=== PATIENT | male | born 1990 | race American Indian/Alaskan Native ===

== ENCOUNTER 2017-06-14 17:01 | Inpatient (IN) | payer BC ==
--- NOTE | 2017-06-14 17:47 | Cat Scan Report ---
FINAL REPORT EXAM: CT HEAD/BRAIN WO CON HISTORY: neuro deficits \T\lt; 6hrs or sx present upon awakening TECHNIQUE: Noncontrast serial axial images from skull base to vertex. PRIORS: None. FINDINGS: There is no mass effect or midline shift. There are no abnormal intra or extra-axial fluid collections. Cortical sulci and lateral ventricles are within normal limits for size and configuration. Basilar cisterns are patent. No acute intracranial hemorrhage is identified. There is polypoid mucosal thickening in left maxillary sinus. Mucosal thickening is also noted in the frontal sinus. Mastoid air cells are well aerated. No acute osseous abnormality is identified. IMPRESSION: 1. No abnormal mass or acute intracranial hemorrhage is identified. 2. The patient can be further assessed with MRI with diffusion-weighted imaging if indicated.
[2017-06-14 17:56] LABS: Basophils % (Auto) 0.6 % (0.0-1.8); Eosinophils % (Auto) 4.9 % (0.0-4.3); Hematocrit 42.2 % (35.5-45.6); Hemoglobin 14.1 gm/dl (11.8-15.2); Mean Corpuscular HGB Conc 33 % (32-34); Mean Corpuscular Hemoglobin 29 pg (28-32); Mean Corpuscular Volume 87 fl (84-94); Platelet Count 237 K/mm3 (140-440); Red Blood Count 4.87 M/mm3 (3.65-5.03); Red Cell Distribution Width 13.4 % (13.2-15.2); White Blood Count 7.4 K/mm3 (4.5-11.0)
[2017-06-14 18:06] LABS: INR 0.93 (0.87-1.13)
[2017-06-14 18:07] LABS: Partial Thromboplastin Time 25.3 Sec. (24.2-36.6)
[2017-06-14] MEDS ORDERED: TYLENOL ONE (18:12)
[2017-06-14 18:19] LABS: Anion Gap 17 mmol/L; BUN/Creatinine Ratio 12.72; Blood Urea Nitrogen 14 mg/dL (9-20); Carbon Dioxide 26 mmol/L (22-30); Chloride 101.1 mmol/L (98-107); Glucose 92 mg/dL (75-100); Potassium 4.7 mmol/L (3.6-5.0); Sodium 139 mmol/L (137-145)
[2017-06-14] MEDS ORDERED: TYLENOL PO ONE (18:19)
[2017-06-14] MEDS ORDERED: BENADRYL IV ONE (18:39)
[2017-06-14] MEDS ORDERED: REGLAN IV ONE (18:39)
[2017-06-14] MEDS ORDERED: TORADOL IV ONE (18:39)
[2017-06-14] MEDS ORDERED: NACL 0.9% IV ONE (19:13)
[2017-06-14] MEDS ORDERED: ACTIVASE IV ONE ×2 (19:13)
--- NOTE | 2017-06-14 19:13 | Emergency Department Report ---
ED Neuro Deficit HPI - General Chief Complaint: Neuro Symptoms/Deficit Stated Complaint: NUMB EVERYWHERE Time Seen by Provider: 06/14/17 18:30 Source: patient Mode of arrival: Ambulatory Limitations: No Limitations - History of Present Illness Initial Comments: 26 yo male with no significant past medical history presents to the hospital on several right sided numbness followed by weakness that began around 10 minutes prior to arrival (16:50). He states he was driving he noted numbness at his right foot and then started to spread caudally to right torso sided neck, and right face. Positive associated right tongue numbness as well. Patient states he associated left arm heaviness. He developed left-sided pressure-like headache behind his eye after arrival. Pain is rated 5/10 in intensity without giving a relieving factors. He denies head injury, past medical history, previous migraines, neck pain, slow speech. Patient ambulated without difficulty per RN. - Related Data Allergies/Adverse Reactions: Allergies Allergy/AdvReac Type Severity Reaction Status Date / Time No Known Allergies Allergy Verified 06/14/17 17:09 ED Review of Systems ROS: Stated complaint: NUMB EVERYWHERE Other details as noted in HPI Comment: All other systems reviewed and negative Other: General: No fever or chills Eyes: No blurry vision or discharge HEENT: No throat pain Neck: No pain Respiratory: No shortness of breath, wheezing, or coughing Cardiovascular: No chest pain, palpitations, or syncope GI: No abdominal pain, nausea, vomiting, diarrhea, melena, or hematochezia : No dysuria or increased frequency Musculoskeletal: No back pain, no joint swelling Neurologic: As per HPI Psychiatric: Denies hallucinations, suicidal ideation, homicidal ideation Skin: No rash or lesions ED Past Medical Hx - Past Medical History Previous Medical History?: No - Surgical History Past Surgical History?: No - Social History Smoking Status: Never Smoker Substance Use Type: None ED Neuro Physical Exam - General Limitations: No Limitations Suspected Stroke: Yes - NIHSS Assessment Interval: Baseline 1a. Level of Consciousness: alert 1b. LOC Questions: answers correctly 1c. LOC Commands: performs tasks correctly 2. Best Gaze: normal 3. Visual: no visual loss 4. Facial Palsy: normal symmetrical movement 5b. Motor Arm Right: no drift 5a. Motor Arm Left: no drift 6a. Motor Leg Left: no drift 6b. Motor Leg Right: drift 7. Limb Ataxia: absent 8. Sensory: mild/moderate sensory loss (decreased right face, arm, leg) 9. Best Language: no aphasia 10. Dysarthria: normal 11. Extinction/Inattention: no abnormality Total Score: 2 Stroke Severity: Minor Stroke - Other Other exam information: General: No acute distress, Head: Atraumatic, normocephalic Eyes: Normal appearance, pupils equal and reactive to light, extraocular movements intact HEENT: Moist mucous membranes, normal oropharynx Neck: Full range of motion, normal inspection, no midline tenderness CV: Regular rate and rhythm Respiratory: Clear to auscultation, no wheezes, rales, or crackles Abdomen: Soft, nondistended, nontender, normal bowel sounds, no rebound or guarding Extremities: Full range of motion, no deformity Back: Normal inspection, nontender, full range of motion Neurologic: Alert and oriented 3, cranial nerves grossly intact, seen NIH stroke scale Psychiatric: Normal mood and affect ED Course Vital Signs 06/14/17 06/14/17 17:02 18:09 Temperature 98 F Pulse Rate 81 Respiratory 18 18 Rate Blood Pressure 159/89 O2 Sat by Pulse 100 100 Oximetry - Reevaluation(s) Reevaluation #1: 06/14/17 19:18 Medications for migraine headache provided. TPA ordered. Toradol cancel since TPA will be given. - Consultations Consultation #1: 06/14/17 18:45 case d/w Dr hines, will evaluation 06/14/17 19:[address] Slater after evaluating patient and she recommends tPA due to right-sided weakness, difficulty ambulating, and right-sided numbness. Pt understands and accepts the risks of this medication. - Lab Data Result diagrams: 06/14/17 17:41 06/14/17 17:41 Lab Results 06/14/17 06/14/17 06/14/17 Range/Units 17:13 17:41 17:41 WBC 7.4 (4.5-11.0) K/mm3 RBC 4.87 (3.65-5.03) M/mm3 Hgb 14.1 (11.8-15.2) gm/dl Hct 42.2 (35.5-45.6) % MCV 87 (84-94) fl MCH 29 (28-32) pg MCHC 33 (32-34) % RDW 13.4 (13.2-15.2) % Plt Count 237 (140-440) K/mm3 Lymph % (Auto) 42.3 H (13.4-35.0) % [place] % (Auto) 7.5 H (0.0-7.3) % Eos % (Auto) 4.9 H (0.0-4.3) % Baso % (Auto) 0.6 (0.0-1.8) % Lymph # 3.1 (1.2-5.4) K/mm3 [place] # 0.6 (0.0-0.8) K/mm3 Eos # 0.4 (0.0-0.4) K/mm3 Baso # 0.0 (0.0-0.1) K/mm3 Seg Neutrophils % 44.7 (40.0-70.0) % Seg Neutrophils # 3.3 (1.8-7.7) K/mm3 PT 12.4 (12.2-14.9) Sec. INR 0.93 (0.87-1.13) APTT 25.3 (24.2-36.6) Sec. Thrombin Time (15.1-19.6) Sec. Sodium (137-145) mmol/L Potassium (3.6-5.0) mmol/L Chloride (98-107) mmol/L Carbon Dioxide (22-30) mmol/L Anion Gap mmol/L BUN (9-20) mg/dL Creatinine (0.8-1.5) mg/dL Estimated GFR ml/min BUN/Creatinine Ratio % Glucose (75-100) mg/dL POC Glucose 68 L (70-105) Calcium (8.4-10.2) mg/dL Troponin T (0.00-0.029) ng/mL 06/14/17 06/14/17 Range/Units 17:41 17:41 WBC (4.5-11.0) K/mm3 RBC (3.65-5.03) M/mm3 Hgb (11.8-15.2) gm/dl Hct (35.5-45.6) % MCV (84-94) fl MCH (28-32) pg MCHC (32-34) % RDW (13.2-15.2) % Plt Count (140-440) K/mm3 Lymph % (Auto) (13.4-35.0) % [place] % (Auto) (0.0-7.3) % Eos % (Auto) (0.0-4.3) % Baso % (Auto) (0.0-1.8) % Lymph # (1.2-5.4) K/mm3 [place] # (0.0-0.8) K/mm3 Eos # (0.0-0.4) K/mm3 Baso # (0.0-0.1) K/mm3 Seg Neutrophils % (40.0-70.0) % Seg Neutrophils # (1.8-7.7) K/mm3 PT (12.2-14.9) Sec. INR (0.87-1.13) APTT (24.2-36.6) Sec. Thrombin Time 16.6 (15.1-19.6) Sec. Sodium 139 (137-145) mmol/L Potassium 4.7 (3.6-5.0) mmol/L Chloride 101.1 (98-107) mmol/L Carbon Dioxide 26 (22-30) mmol/L Anion Gap 17 mmol/L BUN 14 (9-20) mg/dL Creatinine 1.1 (0.8-1.5) mg/dL Estimated GFR > 60 ml/min BUN/Creatinine Ratio 12.72 % Glucose 92 (75-100) mg/dL POC Glucose (70-105) Calcium 9.0 (8.4-10.2) mg/dL Troponin T < 0.010 (0.00-0.029) ng/mL - EKG Data -: EKG Interpreted by Co (sinus 73, PAC, inc rbb) When compared to previous EKG there are: previous EKG unavailable - Radiology Data Radiology results: report reviewed (CT head: No acute finding) - Medical Decision Making Plan to admit patient to the hospital. He agreed to receiving TPA After discussion of the risks with the neurologist. Patient will require admission to the hospital for an MRI/further evaluation. Hospitalist informed - Differential Diagnosis complex migraine, mass, ICH, CVA, MS - Thrombolytic Inclusion/Exclusion Thrombolytic Inclusion Criteria: Ischemic Stroke Onset< 3h, Negative CT Scan for ICH Critical Care Time: No Critical care attestation.: If time is entered above; I have spent that time in minutes in the direct care of this critically ill patient, excluding procedure time. ED Disposition Clinical Impression: Right-sided sensory deficit present, Right sided weakness, Left-sided headache , Received intravenous tissue plasminogen activator (tPA) in emergency department Disposition: 09 OP ADMIT IP TO THIS HOSP Is pt being admited?: Yes Condition: Stable Time of Disposition: 19:30 (Dr gastelum/hosp)
[2017-06-14] MEDS ORDERED: PERCOCET 5/325 PO PRN (21:09)
[2017-06-14] MEDS ORDERED: AMBIEN PO PRN (21:09)
[2017-06-14] MEDS ORDERED: DILAUDID IV PRN (21:09)
[2017-06-14] MEDS ORDERED: MILK OF MAGNESIA PO PRN (21:09)
[2017-06-14] MEDS ORDERED: DULCOLAX PR PRN (21:09)
[2017-06-14] MEDS ORDERED: ALUM-MAG HYDROX-SIMETH 200-200-20MG/5ML PO PRN (21:09)
--- NOTE | 2017-06-14 21:09 | History and Physical Report ---
History of Present Illness Date of examination: 06/14/17 Date of admission: 06/14/17 Chief complaint: RLE weakness for 2 hrs History of present illness: History of Present illness 26 yo male with no significant past medical history presents to the hospital on severe right sided numbness followed by weakness that began around 10 minutes prior to arrival (16:50). He states he was driving and noted numbness in his right foot and then started to spread caudally to right torso R side of neck, and right face. Positive associated right tongue numbness as well. Patient states he associated left arm heaviness. He developed left-sided pressure-like headache behind his eye after arrival. Pain is rated 5/10 in intensity without giving a relieving factors. He denies head injury, past medical history, previous migraines, neck pain, slow speech. Patient ambulated without difficulty per RN. Past Medical History Previous Medical History?: No Surgical History Past Surgical History?: No Social History Smoking Status: Never Smoker Substance Use Type: None Review of Systems Stated complaint: NUMB EVERYWHERE Other details as noted in HPI Comment: All other systems reviewed and negative Other: General: No fever or chills Eyes: No blurry vision or discharge HEENT: No throat pain Neck: No pain Respiratory: No shortness of breath, wheezing, or coughing Cardiovascular: No chest pain, palpitations, or syncope GI: No abdominal pain, nausea, vomiting, diarrhea, melena, or hematochezia : No dysuria or increased frequency Musculoskeletal: No back pain, no joint swelling Neurologic: As per HPI Psychiatric: Denies hallucinations, suicidal ideation, homicidal ideation Skin: No rash or lesions Medications and Allergies Allergies Allergy/AdvReac Type Severity Reaction Status Date / Time No Known Allergies Allergy Verified 06/14/17 17:09 Home Medications Medication Instructions Recorded Confirmed Last Taken Type No Known Home Medications [No 06/14/17 06/14/17 Unknown History Reported Home Medications] Exam - Physical Exam Narrative exam: In no distress - Constitutional Vitals: Temp Pulse Resp BP Pulse Ox 98 F 83 18 139/79 100 06/14/17 17:02 06/14/17 19:46 06/14/17 18:09 06/14/17 19:46 06/14/17 19:01 General appearance: Present: no acute distress, well-nourished - EENT Eyes: Present: PERRL ENT: hearing intact, clear oral mucosa - Neck Neck: Present: supple, normal ROM - Respiratory Respiratory effort: normal Respiratory: bilateral: CTA - Cardiovascular Heart rate: 80 Rhythm: regular Heart Sounds: Present: S1 & S2. Absent: rub, click - Extremities Extremities: no ischemia, pulses intact, pulses symmetrical, No edema Peripheral Pulses: within normal limits - Abdominal General gastrointestinal: Present: soft, non-tender, non-distended, normal bowel sounds Male genitourinary: Present: normal - Rectal Rectal Exam: deferred - Integumentary Integumentary: Present: clear, warm, dry - Musculoskeletal Musculoskeletal: gait normal, strength equal bilaterally - Psychiatric Psychiatric: appropriate mood/affect, intact judgment & insight - Neurologic Neurologic: CNII-XII intact, moves all extremities, gait normal, other (Normal [employer] exam when I examined.But my exam was after TPA was given in ER.) Results - Labs CBC & Chem 7: 06/14/17 17:41 06/14/17 17:41 Labs: Laboratory Last Values WBC 7.4 K/mm3 (4.5-11.0) 06/14/17 17:41 RBC 4.87 M/mm3 (3.65-5.03) 06/14/17 17:41 Hgb 14.1 gm/dl (11.8-15.2) 06/14/17 17:41 Hct 42.2 % (35.5-45.6) 06/14/17 17:41 MCV 87 fl (84-94) 06/14/17 17:41 MCH 29 pg (28-32) 06/14/17 17:41 MCHC 33 % (32-34) 06/14/17 17:41 RDW 13.4 % (13.2-15.2) 06/14/17 17:41 Plt Count 237 K/mm3 (140-440) 06/14/17 17:41 Lymph % (Auto) 42.3 % (13.4-35.0) H 06/14/17 17:41 [place] % (Auto) 7.5 % (0.0-7.3) H 06/14/17 17:41 Eos % (Auto) 4.9 % (0.0-4.3) H 06/14/17 17:41 Baso % (Auto) 0.6 % (0.0-1.8) 06/14/17 17:41 Lymph # 3.1 K/mm3 (1.2-5.4) 06/14/17 17:41 [place] # 0.6 K/mm3 (0.0-0.8) 06/14/17 17:41 Eos # 0.4 K/mm3 (0.0-0.4) 06/14/17 17:41 Baso # 0.0 K/mm3 (0.0-0.1) 06/14/17 17:41 Seg Neutrophils % 44.7 % (40.0-70.0) 06/14/17 17:41 Seg Neutrophils # 3.3 K/mm3 (1.8-7.7) 06/14/17 17:41 PT 12.4 Sec. (12.2-14.9) 06/14/17 17:41 INR 0.93 (0.87-1.13) 06/14/17 17:41 APTT 25.3 Sec. (24.2-36.6) 06/14/17 17:41 Thrombin Time 16.6 Sec. (15.1-19.6) 06/14/17 17:41 Sodium 139 mmol/L (137-145) 06/14/17 17:41 Potassium 4.7 mmol/L (3.6-5.0) 06/14/17 17:41 Chloride 101.1 mmol/L (98-107) 06/14/17 17:41 Carbon Dioxide 26 mmol/L (22-30) 06/14/17 17:41 Anion Gap 17 mmol/L 06/14/17 17:41 BUN 14 mg/dL (9-20) 06/14/17 17:41 Creatinine 1.1 mg/dL (0.8-1.5) 06/14/17 17:41 Estimated GFR > 60 ml/min 06/14/17 17:41 BUN/Creatinine Ratio 12.72 % 06/14/17 17:41 Glucose 92 mg/dL (75-100) 06/14/17 17:41 POC Glucose 68 (70-105) L 06/14/17 17:13 Calcium 9.0 mg/dL (8.4-10.2) 06/14/17 17:41 Troponin T < 0.010 ng/mL (0.00-0.029) 06/14/17 17:41 - Imaging and Cardiology EKG: report reviewed (NSR 73/min PAC's Incomplete RBBB) CT Scan - head: report reviewed (NAF) Assessment and Plan Advance Directives: Yes (Full code) VTE prophylaxis?: Chemical Plan of care discussed with patient/family: Yes - Patient Problems (1) Acute CVA (cerebrovascular accident) Current Visit: Yes Status: Acute Plan to address problem: Probably a conversion disorder. Patient was treated as Acute CVA after Tele Neurologist suggested to give TPA.TPA was given in ER. Neurological exam was normal when I examined the patient. Will get MRI/MRA/ECHO/CDS even though I don't expect any abnormalities.To be done b/c Pateient was given TPA. (2) DVT prophylaxis Current Visit: Yes Status: Acute Plan to address problem: on Lovenox
[2017-06-14] MEDS ORDERED: SODIUM CHLORIDE FLUSH SYRINGE 10 ML IV PRN (21:15)
[2017-06-14] MEDS ORDERED: D5NS 1,000 ML IV SCH (22:00)
[2017-06-14] MEDS: PEPCID IV SCH (22:08)
[2017-06-14] MEDS: ZOCOR PO SCH (22:09)
[2017-06-15] MEDS: PEPCID IV SCH ×2 (11:19→23:26)
--- NOTE | 2017-06-15 11:53 | Consultation ---
History of Present Illness - Reason for Consult Consult date: 06/15/17 stroke - History of Present Illness I reviewed all the notes and went over the CT of brain carotid report pending also await the ECHO of heart onset of right sided snesory/ motor finding based on review criteria for tPA was appropriate stroke scale is 8 at baseline MRI/MRA are critical to review plan to follow thanks for consult Medications and Allergies Allergies Allergy/AdvReac Type Severity Reaction Status Date / Time No Known Allergies Allergy Verified 06/14/17 17:09 Home Medications Medication Instructions Recorded Confirmed Last Taken Type No Known Home Medications [No 06/14/17 06/14/17 Unknown History Reported Home Medications] Active Meds: Active Medications Al Hydrox/Mg Hydrox/Simethicone (Alum-Mag Hydrox-Simeth 741-954-15ff/5ml) 30 ml PO Q4H PRN PRN Reason: Indigestion Bisacodyl (Dulcolax) 10 mg PA QDAY PRN PRN Reason: constipation unrelieved by MOM Famotidine (Pepcid) 20 mg IV BID [facility] Last Admin: 06/15/17 11:19 Dose: 20 mg Hydromorphone HCl (Dilaudid) 0.5 mg IV Q3H PRN PRN Reason: Pain , Severe (7-10) Dextrose/Sodium Chloride (D5ns) 1,000 mls @ 100 mls/hr IV DIRECT [facility] Magnesium Hydroxide (Milk Of Magnesia) 30 ml PO Q4H PRN PRN Reason: Constipation Oxycodone/Acetaminophen (Percocet 5/325) 1 tab PO Q6H PRN PRN Reason: Pain, Moderate (4-6) Simvastatin (Zocor) 20 mg PO QHS [facility] Last Admin: 06/14/17 22:09 Dose: 20 mg Sodium Chloride (Sodium Chloride Flush Syringe 10 Ml) 10 ml IV PRN PRN PRN Reason: LINE FLUSH Zolpidem Tartrate (Ambien) 5 mg PO QHS PRN PRN Reason: Sleeplessness Exam - Constitutional Vitals: Temp Pulse Resp BP Pulse Ox 98.3 F 70 17 111/66 100 06/15/17 07:32 06/15/17 09:26 06/15/17 09:26 06/15/17 09:26 06/15/17 09:26 Results - Labs CBC & Chem 7: 06/14/17 17:41 06/14/17 17:41
--- NOTE | 2017-06-15 11:57 | Progress Note ---
Assessment and Plan Assessment and plan: 26 yo male with no medical history presented for left sided numbness and headache 1. Presumed CVA In ER patient received TPA on 06/14 at 8 PM per tele neurology physician's recommendation CT head showed no acute abnormality Awaiting MRI results I doubt that he had CVA; most likely this is migraine versus conversion disorder 2. DVT prophylaxis SCDs. No pharmacological agent as he just received TPA History Interval history: doing well this morning, c/o some facial numbness; no weakness Hospitalist Physical - Constitutional Vitals: Temp Pulse Resp BP Pulse Ox 98.3 F 70 17 111/66 100 06/15/17 07:32 06/15/17 09:26 06/15/17 09:26 06/15/17 09:26 06/15/17 09:26 General appearance: Present: no acute distress, well-nourished - EENT Eyes: Present: PERRL, EOM intact. Absent: scleral icterus, conjunctival injection - Neck Neck: Present: supple, normal ROM. Absent: masses or JVD - Respiratory Respiratory effort: normal Respiratory: bilateral: CTA, negative: rhonchi, wheezing - Cardiovascular Rhythm: regular Heart Sounds: Present: S1 & S2. Absent: systolic murmur - Extremities Extremities: no ischemia - Abdominal General gastrointestinal: soft, non-tender, non-distended, normal bowel sounds - Psychiatric Psychiatric: cooperative - Neurologic Neurologic: CNII-XII intact, no focal deficits Results - Labs CBC & Chem 7: 06/14/17 17:41 06/14/17 17:41 Labs: Laboratory Last Values WBC 7.4 K/mm3 (4.5-11.0) 06/14/17 17:41 RBC 4.87 M/mm3 (3.65-5.03) 06/14/17 17:41 Hgb 14.1 gm/dl (11.8-15.2) 06/14/17 17:41 Hct 42.2 % (35.5-45.6) 06/14/17 17:41 MCV 87 fl (84-94) 06/14/17 17:41 MCH 29 pg (28-32) 06/14/17 17:41 MCHC 33 % (32-34) 06/14/17 17:41 RDW 13.4 % (13.2-15.2) 06/14/17 17:41 Plt Count 237 K/mm3 (140-440) 06/14/17 17:41 Lymph % (Auto) 42.3 % (13.4-35.0) H 06/14/17 17:41 [place] % (Auto) 7.5 % (0.0-7.3) H 06/14/17 17:41 Eos % (Auto) 4.9 % (0.0-4.3) H 06/14/17 17:41 Baso % (Auto) 0.6 % (0.0-1.8) 06/14/17 17:41 Lymph # 3.1 K/mm3 (1.2-5.4) 06/14/17 17:41 [place] # 0.6 K/mm3 (0.0-0.8) 06/14/17 17:41 Eos # 0.4 K/mm3 (0.0-0.4) 06/14/17 17:41 Baso # 0.0 K/mm3 (0.0-0.1) 06/14/17 17:41 Seg Neutrophils % 44.7 % (40.0-70.0) 06/14/17 17:41 Seg Neutrophils # 3.3 K/mm3 (1.8-7.7) 06/14/17 17:41 PT 12.4 Sec. (12.2-14.9) 06/14/17 17:41 INR 0.93 (0.87-1.13) 06/14/17 17:41 APTT 25.3 Sec. (24.2-36.6) 06/14/17 17:41 Thrombin Time 16.6 Sec. (15.1-19.6) 06/14/17 17:41 Sodium 139 mmol/L (137-145) 06/14/17 17:41 Potassium 4.7 mmol/L (3.6-5.0) 06/14/17 17:41 Chloride 101.1 mmol/L (98-107) 06/14/17 17:41 Carbon Dioxide 26 mmol/L (22-30) 06/14/17 17:41 Anion Gap 17 mmol/L 06/14/17 17:41 BUN 14 mg/dL (9-20) 06/14/17 17:41 Creatinine 1.1 mg/dL (0.8-1.5) 06/14/17 17:41 Estimated GFR > 60 ml/min 06/14/17 17:41 BUN/Creatinine Ratio 12.72 % 06/14/17 17:41 Glucose 92 mg/dL (75-100) 06/14/17 17:41 POC Glucose 68 (70-105) L 06/14/17 17:13 Calcium 9.0 mg/dL (8.4-10.2) 06/14/17 17:41 Troponin T < 0.010 ng/mL (0.00-0.029) 06/14/17 17:41 Triglycerides 74 mg/dL (2-149) 06/15/17 06:29 Cholesterol 154 mg/dL (50-199) 06/15/17 06:29 LDL Cholesterol Direct 82 mg/dL (50-130) 06/15/17 06:29 HDL Cholesterol 58 mg/dL (40-59) 06/15/17 06:29 Cholesterol/HDL Ratio 2.65 % 06/15/17 06:29 - Imaging and Cardiology CT Scan - head: report reviewed (no acute abnormality)
[2017-06-15] MEDS: ZOCOR PO SCH (23:27)
--- NOTE | 2017-06-16 02:02 | Admit Criteria Form ---
Admission Criteria Documentation: NEUROLOGY GRG Clinical Indications for Admission to Inpatient Care (Place ' X' for any and all applicable criteria): Hospital admission is needed for appropriate care of the patient because of 1 or more of the following: [ ]I. Encephalitis [ ]II. Severe GRAPHICS COORDINATOR infections indicated by 1 or more of the following(1)(2)(3) : [ ]a) Intracranial abscess [ ]b) Spinal abscess or myelitis [ ]c) Tuberculous or other nonbacterial, nonviral GRAPHICS COORDINATOR infection(8) [ ]III. Vasculitis and 1 or more of the following(14)(15): []a) Altered mental status that is severe or persistent or other acute neurologic change []b) Psychosis []c) Seizure [ ]IV. Status epilepticus or repetitive seizures not controlled with emergent treatment [A] (7)(8) [ ]V. Altered mental status that is severe or persistent [ ]. Transient alteration in consciousness with high-risk etiology; examples include (12)(13): [ ]a) Cardiovascular source [ ]b) Cataplexy [ ]VII. Cerebral aneurysm requiring ANY ONE of the following(14): [ ]a) IV antihypertensives or vasoactive agents [ ]b) Sedation and analgesia for suspected leak [ ]c) Need for external ventricular drainage and cerebral perfusion pressure monitoring [ ]d) Emergent evaluation to determine need for surgical clipping or endovascular coiling by interventional radiology. If surgery is required ( Also use Craniotomy, Supratentorial, for Surgery of Bleeding Intracranial Aneurysm (for bleeding aneurysm) or Craniotomy, Supratentorial (for nonbleeding aneurysm) as appropriate. [X]VIII. New-onset severe neurologic symptom requiring inpatient care indicated by ANY ONE of the following: [ ]a) Aphasia(15) [X]b) Weakness (grade 3 or less) [ ]c) Paralysis (eg, hemiplegia) [ ]d) Spasticity(16) [ ]e) Dystonia [ ]e) Ataxia(17) [ ]f) Amnesia(18) [ ]g) Involuntary movements(19) [ ]h) Vertigo [ ] Visual loss [ ]i) Other severe neurologic finding (eg, papilledema, mass effect on imaging, myoclonus not treatable at alternative level of care (eg, observation care) [ ]IX. Guillain-[place] syndrome(20) [ ]X. Myasthenia gravis crisis or inpatient monitoring need as indicated by 1 or more of the following(21): [ ]a) Intensive treatment (eg, course of plasmapheresis) with inadequate outpatient situation to monitor patients status [ ]b) Inadequate airway protection [ ]c) Respiratory insufficiency requiring intubation or inpatient. monitoring [ ]d) Progressive dysphagia with failure to thrive [ ]XI. Multiple sclerosis or other acute demyelinating disease requiring inpatient care as indicated by 1 or more of the following (22)(23): [ ]a) Acute severe deterioration requiring inpatient treatment (eg, IV steroids, plasmapheresis, close observation) [ ]b) Acute complication requiring inpatient care (eg, sepsis, severe decubitus, aspiration) [ ]XII.Parkinson disease requiring inpatient care (Also use Optimal Recovery Care Criteria or General Recovery Criteria as appropriate) indicated by 1 or more of the following(25): [ ]a) Infection (eg, aspiration pneumonia) not treatable at alternative level of care [ ]b Dehydration that is severe or persistent [ ]c) Life-threatening agitation or psychotic behavior not treatable on emergency, observation care, or alternative level (eg, residential) basis [ ]d) Severe medication withdrawal effects (eg, freezing, neuroleptic malignant syndrome) not responsive to emergency and observation care treatment ( as appropriate) [ ]e) Other severe manifestation not treatable at alternative level of care [ ]XII. Amyotrophic lateral sclerosis with inpatient care needs as indicated by ANY ONE of the following(26): [ ]a) Acute complications (eg, aspiration pneumonia, sepsis ) requiring inpatient care ( see other optimal Recovery Guideline as appropriate) [ ]b) Dehydration that is severe persistent AND artificial support desired [ ]c) Inadequate airway protection AND artificial support desired [ ]d) Severe ventilatory insufficiency AND artificial support desired [ ]XIII. Myasthenia gravis crisis or inpatient monitoring need as indicated by 1 or more of the following(21): [] a) Inadequate airway protection []b) Respiratory insufficiency requiring intubation or inpatient monitoring []c) Progressive dysphagia with failure to thrive []d) Intensive treatment (e.g., course of plasmapheresis) with inadequate outpatient situation to monitor patients status [ ]XIV. Multiple sclerosis or other acute demyelinating disease requiring inpatient care indicated by 1 or more of the following[C](36)(43)(44)(45)(46): []a) Acute severe deterioration requiring inpatient treatment (eg, IV steroids, plasmapheresis, close observation) []b) Acute complication requiring inpatient care (eg, sepsis, severe decubitus, aspiration) [ ]XV. Intracranial hypertension (e.g., pseudotumor cerebri) requiring inpatient care (e.g., acute visual loss, inadequate oral intake) (47)(48)(49) [ ]XVI. Parkinson disease requiring inpatient care (Also use Optimal Recovery Care Criteria or General Recovery Criteria as appropriate) indicated by 1 or more of the following(25): [] a) Infection (e.g., aspiration pneumonia) not treatable at alternative level of care []b) Volume depletion not responsive to emergency and observation care treatment (as appropriate) []c) Life-threatening agitation or psychotic behavior not treatable on emergency, observation care, or alternative level (e.g., residential) basis []d) Severe medication withdrawal effects (e.g., freezing, neuroleptic malignant syndrome) not responsive to emergency and observation care treatment (as appropriate) []e) Other severe manifestation not treatable at alternative level of care [ ]XVII. Amyotrophic lateral sclerosis with inpatient care needs as indicated by1 or more of the following(42): []a) Acute complications (eg, aspiration pneumonia, sepsis) requiring inpatient care (see other Optimal Recovery Guideline or General Recovery Guideline as appropriate) []b) Dehydration that is severe or persistent AND artificial support desired []c) Inadequate airway protection AND artificial support desired []d) Severe ventilatory insufficiency AND artificial support desired [ ]XVIII. Severe myopathy, neuropathy, or other neuromuscular disease indicated by 1 or more of the following(42)(52)(53)(54): []a ) New-onset severe diffuse weakness (eg, strength 3/5 or less) []b) Severe dysphagia []c) Dyspnea at rest or with minimal exertion (new) []d) Inadequate airway protection []e) Inadequate ventilation indicated by 1 or more of the following : i) Partial pressure of carbon dioxide greater than 44 mm Hg ( 5.9 kPa) (new) ii) Reduced peak expiratory flow rate (new) iii) Vital capacity less than 50% of predicted (less than 15 mL/kg) iv) Peak inspiratory force less negative than -30 cm H2O (- 2942 Pa) [ ]XVII.Complications of congenital or degenerative disease (eg, infection, seizures, dehydration, injury) not responsive to emergency and observation care treatment (as appropriate ) [C](16)(29)(30) [ ]XVIII.Suspected or confirmed nerve or muscle toxic injury, including ANY ONE of the following: [ ]a) Rhabdomyolysis(31) i) Acute renal failure ii) Dehydration that is severe or persistent iii) Altered mental status that is severe or persistent iv) Electrolyte abnormality that remains after emergency or observation level care ( as appropriate) [ ]b) Botulism(32) [ ]c) Other severe toxin-induced sign or symptom [ ]XIX. Neurologic trauma requiring inpatient treatment (medical) indicated by ANY ONE of the following(33)(34): [ ]a) Vital signs or neurologic signs more frequently than every 4 hours [ ]b) Hyperosmolar therapy [ ]c) Respiratory monitoring [ ]d) Intracranial pressure monitoring and treatment [ ]e) Stabilization and immobilization device placement (eg, braces, body jacket) [ ]f) Intubation & mechanical ventilation for airway protection or therapeutic hyperventilation [ ]g) Other treatment or monitoring needed that requires inpatient level of care [ ]XX.Complications of neurologic devices (eg, ventricular shunt, neurostimulator) requiring 1 or more of the following(35)(36): [ ]a) IV antibiotics with monitoring while awaiting culture results [ ]b) Monitoring for hydrocephalus [X]XXI. Neurology condition symptom, or finding for which emergency and observation care have failed or are not considered appropriate. See General Criteria: Observation Care ISC, General Admission Criteria GRG, or Pediatric General Admission Criteria GRG guideline as appropriate. The original [facility] [employer] content created by [email or web address] has been revised. The portions of the content which have been revised are identified through the use of italic text or in bold, and [facility] has neither reviewed nor approved the modified material. All other unmodified content is copyright [facility] Please see references footnoted in the original [facility] 2016 Admission Criteria Met: Yes
[2017-06-16] MEDS: PEPCID IV SCH (11:44)
--- NOTE | 2017-06-16 11:44 | Magnetic Resonance Report ---
MRI BRAIN WITHOUT CONTRAST INDICATION: Stroke. COMPARISON: 06/14/[address] FINDINGS: Noncontrast multiplanar and multisequence MRI of the brain demonstrates normal ventricles and sulci without acute infarct, hemorrhage, mass effect or midline shift. No abnormal extra-axial masses or fluid collections. Normal major intracranial vascular flow voids. Normal posterior fossa structures with symmetric seventh and eighth nerve complexes. Symmetric, grossly unremarkable eye globes. Mild to moderate bilateral ethmoid sinusitis and left more than right frontal sinus mucosal thickening. Approximately 1.5 cm left maxillary sinus mucous retention cyst inferiorly as well with slight bilateral maxillary sinusitis. Clearly imaged sphenoid sinuses and mastoid air cells. Normal midline structures without evidence of Chiari malformation. CONCLUSION: Sinusitis without acute intracranial MRI abnormality, as described. Thank you for the opportunity to participate in this patient's care.
--- NOTE | 2017-06-16 11:46 | Magnetic Resonance Report ---
MRA HEAD WITHOUT CONTRAST INDICATION: Stroke. COMPARISON: None similar. FINDINGS: MRA of the head performed without intravenous contrast and demonstrates no evidence of flow-limiting stenosis, occlusion or vascular malformation. Please note that detection of aneurysms less than 5 mm is limited on this exam. CONCLUSION: Normal study of the [place]. Thank you for the opportunity to participate in this patient's care.
--- NOTE | 2017-06-16 11:53 | Consultation ---
History of Present Illness Consult date: 06/16/17 Requesting physician: CELINA SHARMA Consult reason: other (abnormal TTE ) History of present illness: The pt is a 26 YO male with no known significant past medical history. He is previously unknown to our practice. He presented on 06/14 with c/o severe right sided numbness followed by weakness that began around 10 minutes prior to arrival (16:50). He states he was driving and noted numbness in his right foot and then started to spread to right torso, R side of neck, right face, and right side of the tongue. Symptoms were associated with left arm heaviness. He developed left-sided pressure-like headache behind his eye after arrival to ED. Pain is rated 5/10 in intensity without giving a relieving factors. He denies head injury, past medical history, previous migraines, neck pain, slow speech. Following arrival to ED, head CT revealed NAF. Pt received tPA on 06/14 @ 8PM for presumed CVA. Head MRA and brain MRI today revealed NAF. Transthoracic echo done this AM showed [id number] shunting across the interatrial septum with patent foramen ovale and thus cardiology has been consulted for further eval/management. On evaluation, pt denies any cardiac complaints. He denies any prior cardiac issues. Past History Past Medical History: No medical history Social history: lives with family. denies: smoking, alcohol abuse, prescription drug abuse Family history: no significant family history Medications and Allergies Allergies Allergy/AdvReac Type Severity Reaction Status Date / Time No Known Allergies Allergy Verified 06/14/17 17:09 Home Medications Medication Instructions Recorded Confirmed Last Taken Type No Known Home Medications [No 06/14/17 06/14/17 Unknown History Reported Home Medications] Active Meds: Active Medications Al Hydrox/Mg Hydrox/Simethicone (Alum-Mag Hydrox-Simeth [id number]/5ml) 30 ml PO Q4H PRN PRN Reason: Indigestion Bisacodyl (Dulcolax) 10 mg IA QDAY PRN PRN Reason: constipation unrelieved by MOM Famotidine (Pepcid) 20 mg IV BID JACKY Last Admin: 06/16/17 11:44 Dose: 20 mg Hydromorphone HCl (Dilaudid) 0.5 mg IV Q3H PRN PRN Reason: Pain , Severe (7-10) Dextrose/Sodium Chloride (D5ns) 1,000 mls @ 100 mls/hr IV DIRECT [facility] Last Admin: 06/15/17 21:35 Dose: 100 mls/hr Magnesium Hydroxide (Milk Of Magnesia) 30 ml PO Q4H PRN PRN Reason: Constipation Oxycodone/Acetaminophen (Percocet 5/325) 1 tab PO Q6H PRN PRN Reason: Pain, Moderate (4-6) Simvastatin (Zocor) 20 mg PO QHS [facility] Last Admin: 06/15/17 23:27 Dose: 20 mg Sodium Chloride (Sodium Chloride Flush Syringe 10 Ml) 10 ml IV PRN PRN PRN Reason: LINE FLUSH Zolpidem Tartrate (Ambien) 5 mg PO QHS PRN PRN Reason: Sleeplessness Review of Systems Constitutional: no weight loss, no weight gain, no fever, no chills, no sweats Ears, nose, mouth and throat: no ear pain, no nose pain, no sinus pressure, no sinus pain Cardiovascular: no chest pain, no orthopnea, no palpitations, no rapid/ irregular heart beat, no edema, no syncope, no lightheadedness, no shortness of breath, no dyspnea on exertion, no high blood pressure, no leg edema, no decreased exercise tolerance Respiratory: no cough, no congestion, no wheezing, no pain on inspiration Gastrointestinal: no abdominal pain, no nausea, no vomiting, no diarrhea, no constipation, no change in bowel habits, no hematemesis Musculoskeletal: arm numbness/tingling (right sided), leg numbness/tingling ( right sided), muscle weakness (right sided), no neck stiffness, no neck pain, no shooting arm pain, no low back pain, no shooting leg pain Integumentary: no rash, no pruritis, no redness, no sores, no wounds Neurological: weakness (right sided), numbness (right sided), tingling (right sided ), no head injury, no paralysis Endocrine: no cold intolerance, no heat intolerance Hematologic/Lymphatic: no easy bruising, no easy bleeding, no lymphadenopathy Allergic/Immunologic: no urticaria, no wheezing, no persistent infections Physical Examination Vital Signs Temp Pulse Resp BP Pulse Ox 98 F 81 18 159/89 100 06/14/17 17:02 06/14/17 17:02 06/14/17 17:02 06/14/17 17:02 06/14/17 17:02 General appearance: no acute distress HEENT: Positive: PERRL, Normocephaly, Mucus Membranes Moist Neck: Positive: neck supple, trachea midline Cardiac: Positive: Reg Rate and Rhythm, S1/S2, Systolic Murmur Lungs: Positive: Normal Exam, clear to auscultation, Normal Breath Sounds Neuro: Positive: Grossly Intact, Cranial Nerve 2-12 Intact Abdomen: Positive: Unremarkable, Soft, Active Bowel Sounds. Negative: Tender Skin: Positive: Clear. Negative: Rash Musculoskeletal: No Fluid Collection, No Pain, Normal Range of Motion Extremities: Absent: edema Results 06/14/17 17:41 06/14/17 17:41 - Imaging and Cardiology Echo: report reviewed (EF 55-60%, [id number] shunting across the interatrial septum with patent foramen ovale ) EKG: image reviewed EKG interpretations - Telemetry EKG Rhythm: Sinus Rhythm - EKG Sinus rhythms and dysrhythmias: sinus rhythm AV and intraventricular conduction: right bundle branch block (incomplete) Assessment and Plan Assessment: ? CVA - head CT, head/brain MRI/MRA with NAF; s/p TPA 06/14 @ 8PM. [id number] shunting across interatrial septum with suspected patent foramen ovale Plan: Currently stable cardiac status. Plan for MARTIN for further evaluation of suspected PFO tomorrow afternoon at 16: 30. NPO after breakfast. Assessment and plan reviewed with pt at bedside. The patient has been seen in conjunction with Dr. Zaman who agrees with the assessment and plan of care.
--- NOTE | 2017-06-16 16:01 | Discharge Summary ---
Providers - Providers Date of Admission: 06/14/17 21:09 Date of discharge: 06/16/17 Attending physician: CELINA SHARMA 06/14/17 21:15 Occupational Therapy Evaluate and Treat [CONS] Routine Comment: Reason For Exam: Neuro deficits Physical Therapy Evaluation and Treat [CONS] Routine Comment: Reason For Exam: Neuro deficits 06/16/17 12:27 Consult to Physician [CONS] Routine Consulting Provider: VICTORIA MAYES Reason For Exam: MARTIN (PFO?) Place consult to:: Dr. Mayes Notified:: ISMAEL HAYES Phone number called:: IN HOUSE Was contact made?: Yes If yes, spoke with:: ISMAEL Miller Time called:: 13:00 Primary care physician: BECKY PENA MD Hospitalization Reason for admission: right sided numbness and headache Condition: Stable Pertinent studies: CT head MRI/A Carotid Doppler Echocardiogram Hospital course: Patient is a 26 years old -Citizen Of [place] male with no past medical history who presented to the hospital for sudden severe right-sided numbness followed by weakness and associated headache; symptoms started 10 minutes prior to arrival. Teleneurology consulted in ER and stroke workup initiated; patient also received TPA. CT head and brain MRI showed no acute abnormality. Diagnosed with migraine and later confirmed by neurologist (second opinion). Old stroke workup he underwent echocardiogram that showed left to right shunting ; cardiology was consulted and patient scheduled for transesophageal echocardiogram for better assessment, but he refused and requested to be discharged stating that will follow with cardiology in [place] where he leaves. Discharge diagnoses: Migraine ASD/PFO Disposition: -01 TO HOME OR SELFCARE Time spent for discharge: 35 min Core Measure Documentation - Palliative Care Palliative Care/ Comfort Measures: Not Applicable - Core Measures Any of the following diagnoses?: none Exam - Physical Exam Narrative exam: Seen and examined: - Constitutional Vitals: Temp Pulse Resp BP Pulse Ox 98.4 F 60 16 118/70 98 06/16/17 08:00 06/16/17 08:00 06/16/17 08:00 06/16/17 08:00 06/16/17 15:04 General appearance: Present: no acute distress, well-nourished - EENT Eyes: Present: PERRL, EOM intact. Absent: scleral icterus, conjunctival injection - Neck Neck: Present: supple, normal ROM. Absent: masses or JVD - Respiratory Respiratory effort: normal Respiratory: bilateral: CTA, negative: rhonchi, wheezing - Cardiovascular Rhythm: regular Heart Sounds: Present: S1 & S2, systolic murmur - Extremities Extremities: no ischemia - Abdominal General gastrointestinal: Present: soft, non-tender, non-distended, normal bowel sounds - Musculoskeletal Musculoskeletal: strength equal bilaterally - Psychiatric Psychiatric: cooperative - Neurologic Neurologic: CNII-XII intact, no focal deficits Plan Activity: advance as tolerated Diet: low cholesterol, low salt Additional Instructions: Follow-up with your heel shaver. Follow up with a neurologist of your choice Follow up with: BECKY PENA MD [Primary Care Provider] - 3 Days
--- NOTE | 2017-06-16 16:18 | Event Note ---
Date: 06/16/17 Indications, potential risks and benefits of MARTIN reviewed with pt. 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 Pt reports that per neurology, pt suffered a complex migraine, CVA has been ruled out. Being that pt is clinically and hemodynamically stable with no cardiac complaints, pt may discharge home from cardiology standpoint to follow up with [place] orthodontic band maker. Pt will be provided with TTE disc from [facility] at discharge. Elba HAYES NP / DR. MAYES
[2017-06-16 16:24] VITALS: BP 126/70
[2017-06-16] MEDS ORDERED: PEPCID PO SCH (22:00)
== END 2017-06-16 18:56 | disposition home or self-care (01) | DRG 103 ==
LOC: ED 17:01 → CC1 21:09 → 3A 06-15 20:03
PROVIDERS: ADMIT Internal Medicine; ATTEND Internal Medicine
DX: G43.909 Migraine, unspecified, not intractable, without status migrainosus (principal)
CPT/HCPCS: 36415; 70450; 70544; 70551; 80048; 80061; 82962; 84484; 85025; 85610; 85670; 85730; 93005; 93010; 93306; 93880; 96374; 96375; J1200; J2765; J2997; J7042